=== PATIENT | male | born 1955 | race American Indian/Alaskan Native ===

== ENCOUNTER 2017-01-21 23:10 | Inpatient (IN) | payer MEDICAID ==
[~2017-01-21] VITALS: Ht 170.2 cm; Wt 92.0 kg
[~2017-01-21 23:10] MED LIST: CYCL10TA50 PO; HYDR-3307 PO
[2017-01-21] MEDS ORDERED: IBUP-1222 PO (23:59)
[2017-01-21] MEDS ORDERED: GABA100C8 PO (23:59)
[2017-01-22] MEDS ORDERED: SODIUM CHLORIDE FLUSH 10ML SYR IVF ONE
[2017-01-22] MEDS ORDERED: ALBUTEROL/IPRATROPIUM 2.5MG/0.5MG, 3 ML NPPB ONE
[2017-01-22] MEDS ORDERED: ALBUTEROL/IPRATROPIUM 2.5MG/0.5MG, 3 ML ONE (00:07)
[2017-01-22 00:49] LABS: ASPARTATE AMINO TRANSFERASE 21 U/L (15-37); BLOOD UREA NITROGEN 17 mg/dL (7-18)
[2017-01-22 00:55] LABS: IS PT STATUS REG ER OR PRE ER? YES
[2017-01-22] MEDS ORDERED: LEVOFLOXACIN/PMX 750MG/150ML 150 ML IV ONE (01:30)
[2017-01-22] MEDS ORDERED: LEVOFLOXACIN/PMX 750MG/150ML 150 ML ONE (01:48)
[2017-01-22] MEDS ORDERED: DOCUSATE 100 MG CAPSULE PO PRN (02:00)
[2017-01-22] MEDS ORDERED: HYDROcodone/APAP 10/325 MG TABLET PO PRN (02:00)
[2017-01-22] MEDS ORDERED: ACETAMINOPHEN 325 MG TABLET PO PRN (02:00)
[2017-01-22] MEDS ORDERED: LABETALOL 5MG/ML, 20ML IV PRN (02:00)
[2017-01-22] MEDS ORDERED: POLYETHYLENE GLYCOL 17 GM PACKET PO PRN (02:00)
[2017-01-22] MEDS ORDERED: BISACODYL 10 MG SUPP PR PRN (02:00)
[2017-01-22] MEDS ORDERED: TRAZODONE 50MG TABLET PO PRN (02:00)
[2017-01-22] MEDS ORDERED: ONDANSETRON ODT 4 MG PO PRN (02:00)
[2017-01-22] MEDS ORDERED: NICOTINE 14MG/24 HR PATCH.TD24 TD ONE (02:30)
[2017-01-22 03:50] VITALS: BP 117/73
[2017-01-22] MEDS: CEFTRIAXONE PMX 2GM/50ML 50 ML IV SCH (03:51)
[2017-01-22] MEDS: SODIUM CHLORIDE 0.9% 1,000 ML IV SCH ×2 (03:51→14:25)
[2017-01-22] MEDS ORDERED: PHARMACOKINETIC MONITORING MC PRN (04:30)
[2017-01-22] MEDS ORDERED: VANCOMYCIN PER PHARMACY MC PRN (04:30)
[2017-01-22] MEDS: ENOXAPARIN 40 MG/0.4 ML SQ SCH (05:27)
[2017-01-22] MEDS: AZITHROMYCIN 500 MG in SODIUM CHLORIDE 0.9% 250 ML IV SCH (05:27)
[2017-01-22] MEDS: GABAPENTIN 100 MG CAPSULE PO SCH ×4 (06:14→21:09)
[2017-01-22] MEDS: VANCOMYCIN 1,800 MG in SODIUM CHLORIDE 0.9% 250 ML IV SCH (06:16)
[2017-01-22 09:15] VITALS: BP 128/75
[2017-01-22] MEDS: HYDROcodone/APAP 10/325 MG TABLET PO PRN ×3 (12:08→21:09)
[2017-01-22 13:42] VITALS: BP 146/80
[2017-01-22] MEDS: D5%-LACTATED RINGERS 1,000 ML IV SCH ×2 (17:05→23:34)
[2017-01-22] MEDS: MORPHINE SULFATE 4 MG/ML, 1ML IVPush PRN ×2 (18:43→23:34)
[2017-01-22 19:50] VITALS: BP 149/84
[2017-01-22] MEDS: CYCLOBENZAPRINE 10 MG TABLET PO SCH (21:09)
[2017-01-23] MEDS: HYDROcodone/APAP 10/325 MG TABLET PO PRN ×3 (03:16→14:08)
[2017-01-23] MEDS: CEFTRIAXONE PMX 2GM/50ML 50 ML IV SCH (03:16)
[2017-01-23 03:25] VITALS: BP 154/92
[2017-01-23] MEDS: AZITHROMYCIN 500 MG in SODIUM CHLORIDE 0.9% 250 ML IV SCH (04:14)
[2017-01-23] MEDS: MORPHINE SULFATE 4 MG/ML, 1ML IVPush PRN ×4 (04:14→20:41)
[2017-01-23] MEDS: ENOXAPARIN 40 MG/0.4 ML SQ SCH (05:46)
[2017-01-23] MEDS: VANCOMYCIN 1,800 MG in SODIUM CHLORIDE 0.9% 250 ML IV SCH (05:46)
[2017-01-23] MEDS: GABAPENTIN 100 MG CAPSULE PO SCH ×4 (05:46→20:41)
[2017-01-23 06:42] LABS: BLOOD UREA NITROGEN 10 mg/dL (7-18)
[2017-01-23 08:41] VITALS: BP 123/77
[2017-01-23] MEDS: POTASSIUM CHLORIDE 20 MEQ TAB.ER.PRT PO SCH ×3 (09:35→16:54)
[2017-01-23 15:15] VITALS: BP 128/67
[2017-01-23 18:43] VITALS: BP 149/82
[2017-01-23] MEDS: CYCLOBENZAPRINE 10 MG TABLET PO SCH (20:41)
[2017-01-24] MEDS: MORPHINE SULFATE 4 MG/ML, 1ML IVPush PRN ×6 (01:37→23:43)
[2017-01-24 02:04] VITALS: BP 143/87
[2017-01-24] MEDS: CEFTRIAXONE PMX 2GM/50ML 50 ML IV SCH (03:36)
[2017-01-24] MEDS: AZITHROMYCIN 500 MG in SODIUM CHLORIDE 0.9% 250 ML IV SCH (04:16)
[2017-01-24] MEDS: VANCOMYCIN 1,800 MG in SODIUM CHLORIDE 0.9% 250 ML IV SCH (05:28)
[2017-01-24] MEDS: GABAPENTIN 100 MG CAPSULE PO SCH ×4 (05:28→21:14)
[2017-01-24] MEDS: ENOXAPARIN 40 MG/0.4 ML SQ SCH (05:28)
[2017-01-24 06:34] LABS: BLOOD UREA NITROGEN 11 mg/dL (7-18)
[2017-01-24 06:46] LABS: TOTAL IRON BINDING CAPACITY 345 mcg/dL (250-450); TRANSFERRIN 262 mg/dL (200-360)
[2017-01-24 07:42] VITALS: BP 126/87
[2017-01-24 13:12] VITALS: BP 137/78
[2017-01-24] MEDS: OXYcodone IR 5MG TABLET PO PRN ×2 (13:15→21:14)
[2017-01-24] MEDS: AMPICILLIN/SULBACTAM 3 GM in SODIUM CHLORIDE 0.9% 100 ML IV SCH ×2 (14:55→21:14)
[2017-01-24 20:56] VITALS: BP 132/72
[2017-01-24] MEDS: DOXYCYCLINE 100MG TABLET PO SCH (21:14)
[2017-01-25 01:27] VITALS: BP 138/66
[2017-01-25] MEDS: AMPICILLIN/SULBACTAM 3 GM in SODIUM CHLORIDE 0.9% 100 ML IV SCH ×4 (02:13→21:33)
[2017-01-25] MEDS: OXYcodone IR 5MG TABLET PO PRN (03:20)
[2017-01-25] MEDS: MORPHINE SULFATE 4 MG/ML, 1ML IVPush PRN (06:19)
[2017-01-25] MEDS: ENOXAPARIN 40 MG/0.4 ML SQ SCH (06:19)
[2017-01-25] MEDS: GABAPENTIN 100 MG CAPSULE PO SCH ×4 (06:19→21:32)
[2017-01-25 07:54] VITALS: BP 122/72
[2017-01-25] MEDS: DOXYCYCLINE 100MG TABLET PO SCH ×2 (09:48→21:33)
[2017-01-25] MEDS ORDERED: OXYcodone IR 5MG TABLET PO PRN ×2 (10:00→12:30)
[2017-01-25 13:46] VITALS: BP 122/78
[2017-01-25] MEDS: HYDROcodone/APAP 10/325 MG TABLET PO PRN ×2 (16:03→23:39)
[2017-01-25 19:57] VITALS: BP 125/63
[2017-01-26] MEDS: MORPHINE SULFATE 4 MG/ML, 1ML IVPush PRN ×3 (01:50→18:42)
[2017-01-26 02:46] VITALS: BP 116/68
[2017-01-26] MEDS: AMPICILLIN/SULBACTAM 3 GM in SODIUM CHLORIDE 0.9% 100 ML IV SCH ×4 (03:58→21:07)
[2017-01-26] MEDS: GABAPENTIN 100 MG CAPSULE PO SCH ×4 (06:00→21:00)
[2017-01-26 06:04] LABS: BLOOD UREA NITROGEN 15 mg/dL (7-18)
[2017-01-26 06:07] LABS: ASPARTATE AMINO TRANSFERASE 39 U/L (15-37)
[2017-01-26] MEDS: ENOXAPARIN 40 MG/0.4 ML SQ SCH (06:12)
[2017-01-26 07:30] VITALS: BP 116/69
[2017-01-26] MEDS: DOXYCYCLINE 100MG TABLET PO SCH ×2 (09:00→21:00)
[2017-01-26] MEDS ORDERED: EPINEPHRINE 1 MG/ML, 1ML ONE (11:46)
[2017-01-26] MEDS ORDERED: BUPIVACAINE/PF-EPI 0.25% 1:200K ONE (11:46)
[2017-01-26] MEDS ORDERED: MINERAL OIL 10 ML VIAL MC ONE (11:46)
[2017-01-26] MEDS ORDERED: FENTANYL PF 100 MCG/2ML ONE ×3 (12:41→13:11)
[2017-01-26] MEDS ORDERED: HYDROmorphone 2 MG/ML, 1ML ONE ×2 (12:59→13:11)
[2017-01-26] MEDS ORDERED: OXYcodone 5 MG/5 ML ORAL.SOL UDC ONE (13:00)
[2017-01-26] MEDS: HYDROmorphone 1 MG/ML, 1ML IV PRN ×5 (13:00→13:25)
[2017-01-26] MEDS: FENTANYL PF 100 MCG/2ML IV PRN ×4 (13:05→13:36)
[2017-01-26] MEDS ORDERED: PROMETHAZINE 25 MG/ML, 1ML ONE (13:11)
[2017-01-26] MEDS ORDERED: OXYcodone 5 MG/5 ML ORAL.SOL UDC PO PRN (13:30)
[2017-01-26] MEDS ORDERED: hydrALAzine 20 MG/ML, 1ML IV PRN (13:30)
[2017-01-26] MEDS ORDERED: MIDAZOLAM 1 MG/ML, 2ML IV PRN (13:30)
[2017-01-26] MEDS ORDERED: ONDANSETRON 2MG/ML, 2ML IVPush PRN (13:30)
[2017-01-26] MEDS ORDERED: LABETALOL 5MG/ML, 20ML IV PRN (13:30)
[2017-01-26 14:00] VITALS: BP 136/83
[2017-01-26] MEDS ORDERED: PROPOFOL 10 MG/ML, 20ML ONE (15:12)
[2017-01-26] MEDS: CYCLOBENZAPRINE 10 MG TABLET PO PRN (15:48)
[2017-01-26] MEDS: POTASSIUM CHLORIDE 20 MEQ in D5%-LACTATED RINGERS 1,000 ML IV SCH (15:49)
[2017-01-26 20:41] VITALS: BP 138/87
[2017-01-26] MEDS: SODIUM CHLORIDE FLUSH 10ML SYR IVF SCH (21:01)
[2017-01-26] MEDS: HYDROcodone/APAP 10/325 MG TABLET PO PRN (21:02)
[2017-01-27 01:21] VITALS: BP 125/69
[2017-01-27] MEDS: HYDROcodone/APAP 10/325 MG TABLET PO PRN ×4 (04:02→21:02)
[2017-01-27] MEDS: AMPICILLIN/SULBACTAM 3 GM in SODIUM CHLORIDE 0.9% 100 ML IV SCH ×4 (04:02→21:02)
[2017-01-27] MEDS: POTASSIUM CHLORIDE 20 MEQ in D5%-LACTATED RINGERS 1,000 ML IV SCH ×2 (04:02→15:57)
[2017-01-27] MEDS: GABAPENTIN 100 MG CAPSULE PO SCH ×4 (06:05→21:02)
[2017-01-27] MEDS: ENOXAPARIN 40 MG/0.4 ML SQ SCH (06:06)
[2017-01-27 06:31] LABS: HEMOGLOBIN 10.1 g/dL (13.7-18.0)
[2017-01-27 06:36] VITALS: BP 111/73
[2017-01-27 06:44] LABS: BLOOD UREA NITROGEN 15 mg/dL (7-18)
[2017-01-27 06:47] LABS: ASPARTATE AMINO TRANSFERASE 36 U/L (15-37)
[2017-01-27] MEDS: CYCLOBENZAPRINE 10 MG TABLET PO PRN (08:45)
[2017-01-27] MEDS: SODIUM CHLORIDE FLUSH 10ML SYR IVF SCH ×2 (08:46→21:00)
[2017-01-27] MEDS: DOXYCYCLINE 100MG TABLET PO SCH ×2 (08:46→21:02)
[2017-01-27] MEDS ORDERED: KETOROLAC 30 MG/1 ML IVPush ONE (11:30)
[2017-01-27 12:18] VITALS: BP 153/75
[2017-01-27 20:05] VITALS: BP 138/77
[2017-01-27] MEDS: MORPHINE SULFATE 4 MG/ML, 1ML IVPush PRN (21:35)
[2017-01-28] MEDS: POTASSIUM CHLORIDE 20 MEQ in D5%-LACTATED RINGERS 1,000 ML IV SCH ×2 (02:06→11:19)
[2017-01-28 02:19] VITALS: BP 133/74
[2017-01-28] MEDS: AMPICILLIN/SULBACTAM 3 GM in SODIUM CHLORIDE 0.9% 100 ML IV SCH ×2 (03:40→08:56)
[2017-01-28] MEDS: ENOXAPARIN 40 MG/0.4 ML SQ SCH (06:12)
[2017-01-28] MEDS: GABAPENTIN 100 MG CAPSULE PO SCH ×4 (06:12→20:11)
[2017-01-28 06:15] LABS: HEMOGLOBIN 10.6 g/dL (13.7-18.0)
[2017-01-28 06:34] LABS: ASPARTATE AMINO TRANSFERASE 33 U/L (15-37); BLOOD UREA NITROGEN 20 mg/dL (7-18)
[2017-01-28 06:58] VITALS: BP 132/82
[2017-01-28] MEDS: DOXYCYCLINE 100MG TABLET PO SCH (08:29)
[2017-01-28] MEDS: CYCLOBENZAPRINE 10 MG TABLET PO PRN (08:29)
[2017-01-28] MEDS: HYDROcodone/APAP 10/325 MG TABLET PO PRN ×2 (08:30→13:50)
[2017-01-28] MEDS: SODIUM CHLORIDE FLUSH 10ML SYR IVF SCH ×2 (08:57→20:11)
[2017-01-28 10:00] LABS: DAU SCREEN DISCLAIMER
[2017-01-28 13:59] VITALS: BP 133/75
[2017-01-28 19:50] VITALS: BP 163/71
[2017-01-29 02:22] VITALS: BP 146/86
[2017-01-29] MEDS: GABAPENTIN 100 MG CAPSULE PO SCH ×4 (06:00→21:00)
[2017-01-29] MEDS: ENOXAPARIN 40 MG/0.4 ML SQ SCH (06:17)
[2017-01-29] MEDS: SODIUM CHLORIDE FLUSH 10ML SYR IVF SCH ×2 (07:51→21:31)
[2017-01-29 08:04] VITALS: BP 150/86
[2017-01-29] MEDS: HYDROcodone/APAP 10/325 MG TABLET PO PRN (08:17)
[2017-01-29] MEDS: AMPICILLIN/SULBACTAM 3 GM in SODIUM CHLORIDE 0.9% 100 ML IV SCH ×3 (13:08→23:35)
[2017-01-29 14:44] VITALS: BP 125/70
[2017-01-29] MEDS: OXYcodone IR 5MG TABLET PO PRN ×2 (17:03→23:35)
[2017-01-29 19:21] VITALS: BP 145/78
[2017-01-29] MEDS: CYCLOBENZAPRINE 10 MG TABLET PO PRN (21:31)
[2017-01-30 02:23] VITALS: BP 115/67
[2017-01-30] MEDS: GABAPENTIN 100 MG CAPSULE PO SCH ×4 (04:39→19:48)
[2017-01-30] MEDS: ENOXAPARIN 40 MG/0.4 ML SQ SCH (05:22)
[2017-01-30] MEDS: AMPICILLIN/SULBACTAM 3 GM in SODIUM CHLORIDE 0.9% 100 ML IV SCH ×4 (05:22→23:49)
[2017-01-30 07:43] LABS: HEMOGLOBIN 9.9 g/dL (13.7-18.0)
[2017-01-30 07:55] LABS: ASPARTATE AMINO TRANSFERASE 28 U/L (15-37); BLOOD UREA NITROGEN 16 mg/dL (7-18)
[2017-01-30 08:09] VITALS: BP 132/70
[2017-01-30] MEDS: OXYcodone IR 5MG TABLET PO PRN ×3 (09:58→23:49)
[2017-01-30] MEDS: SODIUM CHLORIDE FLUSH 10ML SYR IVF SCH ×2 (09:58→19:49)
[2017-01-30 13:36] VITALS: BP 125/79
[2017-01-30] MEDS ORDERED: ERGOCALCIFEROL 50,000 UNIT CAPSULE PO SCH (16:00)
[2017-01-30 18:47] VITALS: BP 143/86
[2017-01-30] MEDS: CYCLOBENZAPRINE 10 MG TABLET PO PRN (19:49)
[2017-01-31 03:55] VITALS: BP 119/70
[2017-01-31] MEDS: AMPICILLIN/SULBACTAM 3 GM in SODIUM CHLORIDE 0.9% 100 ML IV SCH ×2 (05:32→11:49)
[2017-01-31] MEDS: GABAPENTIN 100 MG CAPSULE PO SCH ×4 (05:32→21:00)
[2017-01-31] MEDS: ENOXAPARIN 40 MG/0.4 ML SQ SCH (05:33)
[2017-01-31 08:08] VITALS: BP 136/68
[2017-01-31] MEDS: SODIUM CHLORIDE FLUSH 10ML SYR IVF SCH ×2 (09:00→21:00)
[2017-01-31] MEDS: OXYcodone IR 5MG TABLET PO PRN ×2 (12:20→18:19)
[2017-01-31 16:09] VITALS: BP 139/74
[2017-01-31 20:39] VITALS: BP 117/70
[2017-01-31] MEDS: AMOXICILLIN/CLAV 875-125MG TABLET PO SCH (21:24)
[2017-02-01 00:18] VITALS: BP 135/74
[2017-02-01] MEDS: CYCLOBENZAPRINE 10 MG TABLET PO PRN (00:22)
[2017-02-01] MEDS: OXYcodone IR 5MG TABLET PO PRN ×2 (00:22→10:11)
[2017-02-01] MEDS: GABAPENTIN 100 MG CAPSULE PO SCH ×3 (06:00→16:00)
[2017-02-01] MEDS: ENOXAPARIN 40 MG/0.4 ML SQ SCH (06:25)
[2017-02-01 08:28] VITALS: BP 126/81
[2017-02-01] MEDS: SODIUM CHLORIDE FLUSH 10ML SYR IVF SCH (09:00)
[2017-02-01] MEDS: AMOXICILLIN/CLAV 875-125MG TABLET PO SCH (09:52)
[2017-02-01 15:11] VITALS: BP 134/78
[2017-02-01] MEDS ORDERED: ERGO500017 PO (16:31)
[2017-02-01] MEDS ORDERED: AMOX1TAB12 PO (16:31)
[2017-02-01] MEDS ORDERED: OXYC5TAB3 PO (17:41)
== END 2017-02-01 18:30 | disposition home or self-care (01) | DRG 853 ==
LOC: ED 23:59 → EDIP 01-22 01:30 → 3NE 01-22 03:30
PROVIDERS: ADMIT Internal Medicine; ATTEND Internal Medicine
PROC: 0JBP0ZZ Excision of Left Lower Leg Subcutaneous Tissue and Fascia, Open Approach (ICD-10-PCS; 2017-01-26)
PROC: 0JBN0ZZ Excision of Right Lower Leg Subcutaneous Tissue and Fascia, Open Approach (ICD-10-PCS; principal; 2017-01-26 11:30)
DX: A41.9 Sepsis, unspecified organism (principal); J18.9 Pneumonia, unspecified organism; E87.1 Hypo-osmolality and hyponatremia; E44.0 Moderate protein-calorie malnutrition; D50.9 Iron deficiency anemia, unspecified; G89.29 Other chronic pain; M54.9 Dorsalgia, unspecified; F17.210 Nicotine dependence, cigarettes, uncomplicated; B18.2 Chronic viral hepatitis C; D63.8 Anemia in other chronic diseases classified elsewhere; S81.802A Unspecified open wound, left lower leg, initial encounter; S81.801A Unspecified open wound, right lower leg, initial encounter; X58.XXXA Exposure to other specified factors, initial encounter; Y93.89 Activity, other specified; Y92.89 Other specified places as the place of occurrence of the external cause; Y99.8 Other external cause status; Z86.14 Personal history of Methicillin resistant Staphylococcus aureus infection; Z68.30 Body mass index [BMI] 30.0-30.9, adult; Z79.899 Other long term (current) drug therapy; Z71.6 Tobacco abuse counseling
CPT/HCPCS: 36415; 71020; 80048; 80053; 80202; 80307; 82306; 82728; 83540; 83550; 83605; 83880; 84145; 84466; 84484; 85025; 85610; 85651; 86141; 87040; 87070; 87077; 87147; 87186; 87205; 93005; 93922; 94640; 96365; J0171; J0295; J0456; J0696; J1170; J1650; J1885; J1956; J2704; J3010; J3370; J3480; J7620; J7030; J7050; J7121; J7512

== ENCOUNTER → 2017-02-15 | Outpatient (CLI) | payer MEDICAID ==
[~2017-02-15] MED LIST changes: +AMOX1TAB12 PO; +ERGO500017 PO; +GABA100C8 PO; +IBUP-1222 PO; +OXYC5TAB3 PO
== END | disposition home or self-care (01) ==
LOC: WOUND 14:25 → EDBD 14:30
PROVIDERS: ATTEND Internal Medicine
DX: I87.2 Venous insufficiency (chronic) (peripheral) (principal); L97.812 Non-pressure chronic ulcer of other part of right lower leg with fat layer exposed; L97.822 Non-pressure chronic ulcer of other part of left lower leg with fat layer exposed; F11.21 Opioid dependence, in remission; Z86.14 Personal history of Methicillin resistant Staphylococcus aureus infection; F17.210 Nicotine dependence, cigarettes, uncomplicated
CPT/HCPCS: 97597; 97598; 99215

== ENCOUNTER → 2017-02-20 | Outpatient (CLI) | payer MEDICAID | END | disposition home or self-care (01) | LOC: WOUND 13:34 | PROVIDERS: ATTEND Internal Medicine Cardiovascular Disease | DX: I87.2 Venous insufficiency (chronic) (peripheral) (principal); L97.821 Non-pressure chronic ulcer of other part of left lower leg limited to breakdown of skin; L97.811 Non-pressure chronic ulcer of other part of right lower leg limited to breakdown of skin; Z68.30 Body mass index [BMI] 30.0-30.9, adult; B19.20 Unspecified viral hepatitis C without hepatic coma; E44.0 Moderate protein-calorie malnutrition; Z86.14 Personal history of Methicillin resistant Staphylococcus aureus infection; F17.210 Nicotine dependence, cigarettes, uncomplicated | CPT/HCPCS: 97602 ==

== ENCOUNTER → 2017-02-22 | Outpatient (CLI) | payer MEDICAID | END | disposition home or self-care (01) | LOC: WOUND 11:25 | PROVIDERS: ATTEND Internal Medicine Cardiovascular Disease | DX: I87.2 Venous insufficiency (chronic) (peripheral) (principal); L97.821 Non-pressure chronic ulcer of other part of left lower leg limited to breakdown of skin; L97.814 Non-pressure chronic ulcer of other part of right lower leg with necrosis of bone; F17.210 Nicotine dependence, cigarettes, uncomplicated; Z86.14 Personal history of Methicillin resistant Staphylococcus aureus infection; Z86.19 Personal history of other infectious and parasitic diseases; Z87.01 Personal history of pneumonia (recurrent) | CPT/HCPCS: 97602 ==

== ENCOUNTER → 2017-06-07 | Outpatient (CLI) | payer MEDICAID ==
[~2017-06-07] MED LIST changes: +AMOX1TAB64 PO; +CLIN300C93 PO; +GABA-826 PO; -GABA100C8 PO; +GABA300C10 PO; +GABA600T2 PO; +LACT1CAP24 PO; +OXYC-229 PO; +SENN1TAB7 PO
== END | disposition home or self-care (01) ==
LOC: MERGE 14:32 → WOUND 14:32
PROVIDERS: ATTEND Internal Medicine Cardiovascular Disease
DX: L97.822 Non-pressure chronic ulcer of other part of left lower leg with fat layer exposed (principal); L97.812 Non-pressure chronic ulcer of other part of right lower leg with fat layer exposed; A48.0 Gas gangrene; I10 Essential (primary) hypertension; G43.909 Migraine, unspecified, not intractable, without status migrainosus; F17.210 Nicotine dependence, cigarettes, uncomplicated; F12.10 Cannabis abuse, uncomplicated; Z86.19 Personal history of other infectious and parasitic diseases; Z87.01 Personal history of pneumonia (recurrent); Z86.018 Personal history of other benign neoplasm; Z86.14 Personal history of Methicillin resistant Staphylococcus aureus infection; Z90.49 Acquired absence of other specified parts of digestive tract; Z68.31 Body mass index [BMI] 31.0-31.9, adult; Z79.899 Other long term (current) drug therapy
CPT/HCPCS: 99214

== ENCOUNTER → 2017-06-14 | Outpatient (CLI) | payer MEDICAID ==
[~2017-06-14] MED LIST changes: +CLIN300C8 PO; -CLIN300C93 PO; -OXYC-229 PO; +OXYC-307 PO
== END | disposition home or self-care (01) ==
LOC: MERGE 15:00 → WOUND 15:20
PROVIDERS: ATTEND Internal Medicine
DX: L97.822 Non-pressure chronic ulcer of other part of left lower leg with fat layer exposed (principal); L97.812 Non-pressure chronic ulcer of other part of right lower leg with fat layer exposed; A48.0 Gas gangrene; B18.2 Chronic viral hepatitis C; I10 Essential (primary) hypertension; G43.909 Migraine, unspecified, not intractable, without status migrainosus; G89.29 Other chronic pain; Z68.31 Body mass index [BMI] 31.0-31.9, adult; F12.10 Cannabis abuse, uncomplicated; Z87.01 Personal history of pneumonia (recurrent); Z86.14 Personal history of Methicillin resistant Staphylococcus aureus infection; F11.10 Opioid abuse, uncomplicated
CPT/HCPCS: 11042; 11045

== ENCOUNTER → 2017-06-21 | Outpatient (CLI) | payer MEDICAID | END | disposition home or self-care (01) | LOC: WOUND 15:11 | PROVIDERS: ATTEND Internal Medicine | DX: L97.822 Non-pressure chronic ulcer of other part of left lower leg with fat layer exposed (principal); L97.812 Non-pressure chronic ulcer of other part of right lower leg with fat layer exposed; A48.0 Gas gangrene; B18.2 Chronic viral hepatitis C; F12.10 Cannabis abuse, uncomplicated; I10 Essential (primary) hypertension; F11.10 Opioid abuse, uncomplicated; Z68.31 Body mass index [BMI] 31.0-31.9, adult; Z86.14 Personal history of Methicillin resistant Staphylococcus aureus infection; Z87.01 Personal history of pneumonia (recurrent); Z86.19 Personal history of other infectious and parasitic diseases | CPT/HCPCS: 11042; 11045 ==

== ENCOUNTER → 2017-06-28 | Outpatient (CLI) | payer MEDICAID | END | disposition home or self-care (01) | LOC: WOUND 15:00 | PROVIDERS: ATTEND Internal Medicine | DX: L97.822 Non-pressure chronic ulcer of other part of left lower leg with fat layer exposed (principal); L97.812 Non-pressure chronic ulcer of other part of right lower leg with fat layer exposed; E66.01 Morbid (severe) obesity due to excess calories; I10 Essential (primary) hypertension; A48.0 Gas gangrene; F11.10 Opioid abuse, uncomplicated; F12.10 Cannabis abuse, uncomplicated; F17.210 Nicotine dependence, cigarettes, uncomplicated; Z86.14 Personal history of Methicillin resistant Staphylococcus aureus infection; Z87.01 Personal history of pneumonia (recurrent); Z86.19 Personal history of other infectious and parasitic diseases; Z68.31 Body mass index [BMI] 31.0-31.9, adult; Z90.49 Acquired absence of other specified parts of digestive tract | CPT/HCPCS: 97597; 97598 ==

== ENCOUNTER → 2017-07-05 | Outpatient (CLI) | payer MEDICAID | END | disposition home or self-care (01) | LOC: WOUND 14:37 | PROVIDERS: ATTEND Internal Medicine | DX: L97.822 Non-pressure chronic ulcer of other part of left lower leg with fat layer exposed (principal); L97.812 Non-pressure chronic ulcer of other part of right lower leg with fat layer exposed; B19.20 Unspecified viral hepatitis C without hepatic coma; A48.0 Gas gangrene; E66.01 Morbid (severe) obesity due to excess calories; I10 Essential (primary) hypertension; F17.210 Nicotine dependence, cigarettes, uncomplicated; Z87.01 Personal history of pneumonia (recurrent); Z86.14 Personal history of Methicillin resistant Staphylococcus aureus infection; Z68.31 Body mass index [BMI] 31.0-31.9, adult | CPT/HCPCS: 11042; 11045 ==

== ENCOUNTER 2017-12-26 23:59 | Inpatient (IN) | payer MEDICAID ==
[~2017-12-26] VITALS: Ht 170.2 cm; Wt 90.0 kg
[2017-12-27] MEDS ORDERED: SODIUM CHLORIDE FLUSH 10ML SYR IVF ONE (00:30)
[2017-12-27 01:30] LABS: ANION GAP 9 mmol/L (5-15); CALCIUM 8.1 mg/dL (8.5-10.1); CHLORIDE 105 mmol/L (98-107); CREATININE 0.95 mg/dL (0.7-1.3)
[2017-12-27 01:31] LABS: ALBUMIN 3.2 g/dL (3.4-5.0)
[2017-12-27 01:46] LABS: BASOPHILS # (AUTO) 0.02 x10^3/uL (0-0.1); BASOPHILS % (AUTO) 0 % (0-1); EOSINOPHILS # (AUTO) 0.03 x10^3/uL (0-0.4); EOSINOPHILS % (AUTO) 0 % (1-7); LYMPHOCYTES # (AUTO) 0.95 x10^3/uL (1-3.4); LYMPHOCYTES % (AUTO) 11 % (22-44); MD SCAN; MEAN CORPUSCULAR HEMOGLOBIN 25.9 pg (27.5-34.5); MEAN CORPUSCULAR HGB CONC 33.3 g/dL (33.2-36.2); MEAN CORPUSCULAR VOLUME 77.8 fL (81-97); MEAN PLATELET VOLUME 8.9 fL (7.4-10.4); MONOCYTES # (AUTO) 0.16 x10^3/uL (0.2-0.8); MONOCYTES % (AUTO) 2 % (2-9); NEUTROPHILS # (AUTO) 7.83 x10^3/uL (1.8-6.8); NEUTROPHILS % (AUTO) 87 % (42-75); PLATELET COUNT 273 x10^3/uL (130-400); RED BLOOD COUNT 4.72 x10^6/uL (4.38-5.82); RED CELL DISTRIBUTION WIDTH 17.9 % (9.4-14.8)
[2017-12-27] MEDS ORDERED: AMPICILLIN/SULBACTAM 3 GM in SODIUM CHLORIDE 0.9% 100 ML IV ONE (02:00)
[2017-12-27 04:31] VITALS: BP 118/69
[2017-12-27] MEDS: SODIUM CHLORIDE 0.9% 1,000 ML IV SCH ×2 (05:57→17:58)
[2017-12-27] MEDS ORDERED: ACETAMINOPHEN 325 MG TABLET PO PRN (06:00)
[2017-12-27] MEDS ORDERED: ONDANSETRON 2MG/ML, 2ML IVPush PRN (06:00)
[2017-12-27] MEDS ORDERED: morphine SULFATE 10 MG/ML, 1ML IVPush PRN (06:00)
[2017-12-27] MEDS ORDERED: SENNA/DOCUSATE TABLET PO PRN (06:00)
[2017-12-27] MEDS: ENOXAPARIN 40 MG/0.4 ML SQ SCH (06:33)
[2017-12-27 06:43] LABS: % IRON SATURATION 6 % (20-55); IRON LEVEL 22 mcg/dL (65-175); TOTAL IRON BINDING CAPACITY 395 mcg/dL (250-450)
[2017-12-27 06:49] VITALS: BP 116/54
[2017-12-27] MEDS: AMPICILLIN/SULBACTAM 1,500 MG in SODIUM CHLORIDE 0.9% 50 ML IV SCH ×3 (08:15→21:55)
[2017-12-27] MEDS: GABAPENTIN 300 MG CAPSULE PO SCH ×3 (08:15→21:52)
[2017-12-27] MEDS: LACTOBACILLUS CHEW TABLET PO SCH ×2 (08:15→21:52)
[2017-12-27] MEDS: LACTULOSE 10 GM/15 ML UDC PO SCH ×2 (08:15→21:52)
[2017-12-27] MEDS: HYDROcodone/APAP 10/325 MG TABLET PO PRN ×4 (08:20→21:52)
[2017-12-27 12:11] VITALS: BP 118/75
[2017-12-27] MEDS: IRON SUCROSE COMPLEX 100MG/5ML IV SCH (13:01)
[2017-12-27] MEDS ORDERED: FUROSEMIDE 20 MG/2 ML IV ONE (17:00)
[2017-12-27 19:50] VITALS: BP 127/84
[2017-12-27] MEDS ORDERED: CYCLOBENZAPRINE 10 MG TABLET PO SCH (21:00)
[2017-12-28] MEDS: HYDROcodone/APAP 10/325 MG TABLET PO PRN ×4 (02:20→15:27)
[2017-12-28 02:59] VITALS: BP 107/68
[2017-12-28] MEDS: AMPICILLIN/SULBACTAM 1,500 MG in SODIUM CHLORIDE 0.9% 50 ML IV SCH ×2 (04:02→10:29)
[2017-12-28] MEDS: ENOXAPARIN 40 MG/0.4 ML SQ SCH (06:46)
[2017-12-28 06:51] LABS: BASOPHILS # (AUTO) 0.04 x10^3/uL (0-0.1); BASOPHILS % (AUTO) 1 % (0-1); EOSINOPHILS # (AUTO) 0.11 x10^3/uL (0-0.4); EOSINOPHILS % (AUTO) 2 % (1-7); LYMPHOCYTES # (AUTO) 1.02 x10^3/uL (1-3.4); LYMPHOCYTES % (AUTO) 17 % (22-44); MD NO; MEAN CORPUSCULAR HEMOGLOBIN 25.9 pg (27.5-34.5); MEAN CORPUSCULAR HGB CONC 33.2 g/dL (33.2-36.2); MEAN CORPUSCULAR VOLUME 78.2 fL (81-97); MEAN PLATELET VOLUME 8.8 fL (7.4-10.4); MONOCYTES # (AUTO) 0.36 x10^3/uL (0.2-0.8); MONOCYTES % (AUTO) 6 % (2-9); NEUTROPHILS # (AUTO) 4.66 x10^3/uL (1.8-6.8); NEUTROPHILS % (AUTO) 75 % (42-75); PLATELET COUNT 268 x10^3/uL (130-400); RED BLOOD COUNT 4.15 x10^6/uL (4.38-5.82); RED CELL DISTRIBUTION WIDTH 17.7 % (9.4-14.8)
[2017-12-28 06:56] LABS: ANION GAP 6 mmol/L (5-15); CALCIUM 7.6 mg/dL (8.5-10.1); CHLORIDE 104 mmol/L (98-107)
[2017-12-28 06:57] LABS: CREATININE 0.89 mg/dL (0.7-1.3)
[2017-12-28 06:59] VITALS: BP 112/73
[2017-12-28] MEDS: LACTULOSE 10 GM/15 ML UDC PO SCH (09:00)
[2017-12-28] MEDS: GABAPENTIN 300 MG CAPSULE PO SCH ×2 (09:00→15:27)
[2017-12-28] MEDS: SODIUM CHLORIDE 0.9% 1,000 ML IV SCH (09:20)
[2017-12-28] MEDS: LACTOBACILLUS CHEW TABLET PO SCH (09:21)
[2017-12-28] MEDS: IRON SUCROSE COMPLEX 100MG/5ML IV SCH (09:21)
[2017-12-28] MEDS ORDERED: AMOX1TAB64 PO (11:02)
[2017-12-28 13:30] VITALS: BP 117/73
== END 2017-12-28 15:50 | disposition home or self-care (01) | DRG 603 ==
LOC: ED 12-27 01:55 → EDIP 12-27 02:00 → ED 12-27 02:43 → 4NOR 12-27 03:00
PROVIDERS: ADMIT Hospitalist; ATTEND Hospitalist
DX: L03.115 Cellulitis of right lower limb (principal); E87.1 Hypo-osmolality and hyponatremia; E87.2 Acidosis; D50.9 Iron deficiency anemia, unspecified; I10 Essential (primary) hypertension; G89.29 Other chronic pain; Z86.14 Personal history of Methicillin resistant Staphylococcus aureus infection; Z86.19 Personal history of other infectious and parasitic diseases
CPT/HCPCS: 36415; 80048; 82040; 83540; 83550; 83605; 83735; 84100; 85025; 87040; 96365; J0295; J1650; J1756; J1940; J7030

== ENCOUNTER 2018-05-22 19:07 | Inpatient (IN) | payer MEDICAID ==
[~2018-05-22] VITALS: Ht 170.2 cm; Wt 90.0 kg
[2018-05-22] MEDS ORDERED: SODIUM CHLORIDE FLUSH 10ML SYR IVF ONE (19:30)
[2018-05-22 19:51] LABS: BASOPHILS # (AUTO) 0.02 x10^3/uL (0-0.1); BASOPHILS % (AUTO) 0 % (0-1); EOSINOPHILS # (AUTO) 0.01 x10^3/uL (0-0.4); EOSINOPHILS % (AUTO) 0 % (1-7); LYMPHOCYTES # (AUTO) 1.06 x10^3/uL (1-3.4); LYMPHOCYTES % (AUTO) 6 % (22-44); MD NO; MEAN CORPUSCULAR HEMOGLOBIN 26.9 pg (27.5-34.5); MEAN CORPUSCULAR HGB CONC 33.7 g/dL (33.2-36.2); MEAN CORPUSCULAR VOLUME 79.7 fL (81-97); MONOCYTES # (AUTO) 0.35 x10^3/uL (0.2-0.8); MONOCYTES % (AUTO) 2 % (2-9); NEUTROPHILS # (AUTO) 15.71 x10^3/uL (1.8-6.8); NEUTROPHILS % (AUTO) 92 % (42-75); PLATELET COUNT 344 x10^3/uL (130-400); RED BLOOD COUNT 4.68 x10^6/uL (4.38-5.82); RED CELL DISTRIBUTION WIDTH 17.4 % (9.4-14.8)
[2018-05-22 19:57] LABS: ALANINE AMINOTRANSFERASE 49 U/L (12-78); ALBUMIN 3.2 g/dL (3.4-5.0); ANION GAP 11 mmol/L (5-15); CALCIUM 8.9 mg/dL (8.5-10.1); CHLORIDE 103 mmol/L (98-107); CREATININE 1.06 mg/dL (0.7-1.3)
[2018-05-22 19:59] LABS: ALKALINE PHOSPHATASE 234 U/L (45-117)
[2018-05-22] MEDS ORDERED: SODIUM CHLORIDE 0.9% 1,000ML IVBOLUS ONE (20:00)
[2018-05-22] MEDS ORDERED: OMNIPAQUE 350 MG/ML, 100ML BOTTLE ONE (20:47)
[2018-05-22 21:19] VITALS: BP 152/87
[2018-05-22] MEDS ORDERED: MORPHINE SULFATE 4 MG/ML, 1ML ONE (21:28)
[2018-05-22] MEDS ORDERED: AMPICILLIN/SULBACTAM 3 GM in SODIUM CHLORIDE 0.9% 100 ML IV ONE (21:30)
[2018-05-22] MEDS ORDERED: morphine SULFATE 10 MG/ML, 1ML IVPush ONE (21:30)
[2018-05-22] MEDS ORDERED: VANCOMYCIN PER PHARMACY MC ONE (21:30)
[2018-05-22] MEDS ORDERED: VANCOMYCIN 1,400 MG in SODIUM CHLORIDE 0.9% 250 ML IV ONE (21:30)
[2018-05-22 21:43] LABS: MICROSCOPIC INDICATED
[2018-05-22 21:55] LABS: CULTURE INDICATED? NO
[2018-05-22] MEDS ORDERED: METH5TAB2 PO (22:18)
[2018-05-22] MEDS ORDERED: SODIUM CHLORIDE 0.9% 1,000 ML IV SCH (22:24)
[2018-05-22] MEDS ORDERED: GABAPENTIN 300 MG CAPSULE PO SCH (22:30)
[2018-05-22] MEDS ORDERED: ACETAMINOPHEN 325 MG TABLET PO PRN (22:30)
[2018-05-22] MEDS ORDERED: AMPICILLIN/SULBACTAM 3 GM in SODIUM CHLORIDE 0.9% 100 ML IV SCH (22:30)
[2018-05-22] MEDS ORDERED: POLYETHYLENE GLYCOL 17 GM PACKET PO PRN (22:30)
[2018-05-22] MEDS ORDERED: HEPARIN 5,000 UNITS/ML, 1ML SQ SCH (22:30)
[2018-05-22] MEDS ORDERED: VANCOMYCIN PER PHARMACY MC PRN (22:30)
[2018-05-22] MEDS ORDERED: BISACODYL 10 MG SUPP PR PRN (22:30)
[2018-05-22] MEDS ORDERED: ONDANSETRON 2MG/ML, 2ML IVPush PRN (22:30)
[2018-05-22] MEDS ORDERED: NICOTINE 14MG/24 HR PATCH.TD24 TD SCH (22:30)
[2018-05-22] MEDS ORDERED: PHARMACOKINETIC CONSULTATION MC ONE (23:30)
[2018-05-22] MEDS ORDERED: VANCOMYCIN 1,800 MG in SODIUM CHLORIDE 0.9% 250 ML IV SCH (23:30)
[2018-05-22] MEDS ORDERED: PHARMACOKINETIC MONITORING MC PRN (23:30)
[2018-05-23] MEDS ORDERED: SENNA/DOCUSATE TABLET PO SCH (09:00)
== END 2018-05-23 05:30 | disposition left against medical advice (07) | DRG 872 ==
LOC: ED 22:24 → EDIP 22:25 → 3NE 23:00
PROVIDERS: ADMIT Hospitalist; ATTEND Hospitalist
DX: A41.9 Sepsis, unspecified organism (principal); E44.1 Mild protein-calorie malnutrition; E87.1 Hypo-osmolality and hyponatremia; L03.115 Cellulitis of right lower limb; D50.9 Iron deficiency anemia, unspecified; F12.90 Cannabis use, unspecified, uncomplicated; F17.210 Nicotine dependence, cigarettes, uncomplicated; I10 Essential (primary) hypertension; Z53.21 Procedure and treatment not carried out due to patient leaving prior to being seen by health care provider; Z68.31 Body mass index [BMI] 31.0-31.9, adult; Z86.14 Personal history of Methicillin resistant Staphylococcus aureus infection; Z90.49 Acquired absence of other specified parts of digestive tract
CPT/HCPCS: 36415; 74177; 80053; 81001; 82728; 83540; 83550; 83605; 83690; 84145; 85025; 87040; 96361; 96365; 96375; J0295; J1644; J3370; Q9967; J2270; J7030; J7050